=== PATIENT | male | born 1950 | race Caucasian/White ===

== ENCOUNTER 2023-10-21 08:44 | Outpatient (CLI) | payer OTHER, SELFPAY ==
[2023-10-21] MEDS: PERFLUTREN LIPID MICROSPHERES 2 ML VIAL IV (10:51)
== END 2023-10-21 08:45 | disposition home or self-care (01) ==
LOC: RAD 08:45
PROVIDERS: PCP Chiropractor; Visit Provider Chiropractor
DX: I25.9 Chronic ischemic heart disease, unspecified (principal); I51.7 Cardiomegaly; I36.1 Nonrheumatic tricuspid (valve) insufficiency
CPT/HCPCS: 93306; Q9957